=== PATIENT | female | born 1935 | race Caucasian/White ===

== ENCOUNTER 2018-09-29 23:43 | Inpatient (IN) | payer MEDICARE ==
[2018-09-29] MEDS ORDERED: NS 0.9% 1000 ML** 1,000 ML IV.FLUID IV ONE (23:46)
--- NOTE | 2018-09-29 23:54 | ED ---
Altered Mental Status - HPI Summary HPI Summary: This is an 82 [facility]/o shelter resident who reportedly developed depressed LOC along with hypotension and tachypnea over the course of the evening. There is no report of antecedent illness, and the patient is unable to provide any history LEVEL 5 CAVEAT. - History Of Current Complaint Chief Complaint: EDAltMentalStatus Stated Complaint: UNRESPONSIVE PER EMS Time Seen by Provider: 09/29/18 23:48 - Allergies/Home Medications Allergies/Adverse Reactions: Allergies Allergy/AdvReac Type Severity Reaction Status Date / Time No Known Allergies Allergy Verified 09/29/18 23:50 Home Medications: Home Medications Bisacodyl [Dulcolax] 10 mg AK PRN 09/30/18 [History] Insulin GLARGINE(*) [Lantus(*)] 49 units SUBCUT BEDTIME 09/30/18 [History Confirmed 09/30/18] Insulin LISPRO* [HumaLOG*] 4 units SUBCUT BID WITH MEALS 09/30/18 [History Confirmed 09/30/18] Lisinopril TAB* [Prinivil TAB 5 MG*] 5 mg PO DAILY 09/30/18 [History Confirmed 09/30/18] Ranitidine HCl 09/30/18 [History] Zinc Sulfate CAP* [Zinc-220 CAP*] 220 mg PO DAILY 09/30/18 [History Confirmed ] PMH/Surg Hx/FS Hx/Imm Hx Infectious Disease History: No Infectious Disease History: Denies: Traveled Outside the [place] in Last 30 Days Review of Systems - ROS Summary Review of Systems Summary: LEVEL 5 CAVEAT DUE TO ALTERED MENTAL STATUS Negative: Fever All Other Systems Reviewed And Are Negative: No Physical Exam - Summary Physical Exam Summary: General: This is a chronically ill appearing woman lying on the stretcher in obvious distress with marked tachypnea noted. HR is borderline elevated, and the pt is quite hypotensive. Neck: No obvious swellings. Lungs: There are no abnormal lung sounds, but the patient is tachypneic. Coronary: Peripheral perfusion is good. Abdomen: The abdomen appears normal and is nondistended. Genitourinary: Deferred Back: deferred Extremities: Pt is diffusely flaccid, with decreased muscle tone throughout. There is no sign of any trauma to the extremities. Neurologic: The patient is obtunded and unresponsive to noxious stimuli Psychiatric: deferred due to depressed LOC Vital Signs On Initial Exam: Initial Vitals Pulse Resp BP Pulse Ox 97 45 74/42 94 09/29/18 23:45 09/29/18 23:45 09/29/18 23:45 09/29/18 23:45 Diagnostics - Vital Signs Vital Signs Temp Pulse Resp BP Pulse Ox 09/29/18 23:48 153 40 91 09/29/18 23:46 36.5 C 100 44 74/42 90 09/29/18 23:45 97 45 74/42 94 - Laboratory Result Diagrams: 09/30/18 03:30 09/30/18 03:31 Lab Statement: Any lab studies that have been ordered have been reviewed, and results considered in the medical decision making process. Altered Mental Statu Course/Dx - Diagnoses Provider Diagnoses: Hypernatremia, UTI (urinary tract infection), Acute kidney injury - Provider Notifications Discussed Care Of Patient With: Roman Sutton Instructed by Provider To: Admit As Inpatient - Critical Care Time Critical Care Time: 30-74 min Discharge - Sign-Out/Discharge Documenting (check all that apply): Patient Departure Patient Received Moderate/Deep Sedation with Procedure: No - Discharge Plan Condition: Critical Disposition: ADMITTED TO [facility] Referrals: No Primary Care Phys,NOPCP [Primary Care Provider] - - Billing Disposition and Condition Condition: CRITICAL Disposition: Admitted to [facility] - Attestation Statements Document Initiated by Scribe: No
[2018-09-30] MEDS ORDERED: cefTRIAXone(*) 2 GM in NS 0.9% 50 ML* 50 ML IVPB ONE (01:22)
[2018-09-30 01:23] LABS: Activated Partial Thrombo Time 19.6 seconds (26.0-38.0); INR 1.21 (0.82-1.09)
[2018-09-30 01:25] LABS: Hematocrit 40 % (35-47); Hemoglobin 11.6 g/dL (12.0-16.0); Mean Corpuscular HGB Conc 29 g/dL (31-36); Mean Corpuscular Hemoglobin 26 pg (27-31); Mean Corpuscular Volume 89 fL (80-97); Red Blood Count 4.53 10^6 /uL (3.70-4.87); Red Cell Distribution Width 24 % (10-15); White Blood Count 19.5 10^3/uL (3.5-10.8)
[2018-09-30 01:43] LABS: ALT 65 U/L (7-52); AST 63 U/L (13-39); Albumin 3.9 g/dL (3.2-5.2); Albumin/Globulin Ratio 1.1 (1-3); Alkaline Phosphatase 77 U/L (34-104); BUN/Creatinine Ratio 14.8 (8-20); Blood Urea Nitrogen 111 mg/dL (6-24); CO2 Carbon Dioxide 17 mmol/L (22-32); EGFR African American 6.3 (>60); EGFR Non-African American 5.2 (>60); Globulin 3.7 g/dL (2-4); Glucose 72 mg/dL (70-100); Total Protein 7.6 g/dL (6.4-8.9)
[2018-09-30 01:52] LABS: Anion Gap 15 mmol/L (2-11); Chloride 135 mmol/L (101-111); Potassium 5.2 mmol/L (3.5-5.0); Sodium 167 mmol/L (135-145)
[2018-09-30 01:53] LABS: Troponin I 0.18 ng/mL (<0.04)
[2018-09-30 02:14] LABS: Mean Platelet Volume 12.7 fL (7.4-10.4); Platelet Count 59 10^3/uL (150-450)
[2018-09-30 02:18] LABS: ABS Basophils 0.1 10^3/ul (0-0.2); ABS Lymphocytes 2.7 10^3/ul (1.0-4.8); ABS Monocytes 4.5 10^3/ul (0-0.8); ABS Neutrophils 12.2 10^3/ul (1.5-7.7); Lymphocyte % 13.7 %; Nucleated Red Blood Cells % 0.1
[2018-09-30] MEDS ORDERED: NS 0.9% 1000 ML** 2,000 ML IV ONE (02:21)
[2018-09-30] MEDS ORDERED: NS 0.9% 1000 ML** 1,000 ML IV SCH ×3 (03:45→21:15)
[2018-09-30] MEDS ORDERED: Vancomycin(*) 1,000 MG in NS 0.9% 250 ML* 250 ML IVPB ONE (03:51)
[2018-09-30] MEDS ORDERED: Sodium Bicarbonate 8.4% IV* 50 ML VIAL IV ONE ×2 (03:56→19:19)
[2018-09-30 03:58] LABS: BUN/Creatinine Ratio 15.8 (8-20); Blood Urea Nitrogen 112 mg/dL (6-24); CO2 Carbon Dioxide 17 mmol/L (22-32); Calcium 8.9 mg/dL (8.6-10.3); EGFR African American 6.7 (>60); EGFR Non-African American 5.6 (>60); Glucose 86 mg/dL (70-100); Potassium 4.7 mmol/L (3.5-5.0)
[2018-09-30 03:59] LABS: Sodium 163 mmol/L (135-145)
[2018-09-30 04:02] LABS: Hematocrit 36 % (35-47); Hemoglobin 10.9 g/dL (12.0-16.0); Mean Corpuscular HGB Conc 30 g/dL (31-36); Mean Corpuscular Hemoglobin 27 pg (27-31); Mean Corpuscular Volume 87 fL (80-97); Red Blood Count 4.12 10^6 /uL (3.70-4.87); Red Cell Distribution Width 24 % (10-15); White Blood Count 18.3 10^3/uL (3.5-10.8)
[2018-09-30 04:06] LABS: Troponin I 0.23 ng/mL (<0.04)
[2018-09-30 04:20] LABS: Urine Appearance Turbid; Urine Bacteria Absent (Absent); Urine Bilirubin Negative (Negative); Urine Blood 2+ (Negative); Urine Color Amber; Urine Glucose Negative (Negative); Urine Ketones Trace (Negative); Urine Nitrite Negative (Negative); Urine Protein 2+(100 mg/dL) (Negative); Urine Specific Gravity 1.017 (1.010-1.030); Urine Urobilinogen Negative (Negative)
[2018-09-30 04:23] LABS: Anion Gap 14 mmol/L (2-11); Chloride 132 mmol/L (101-111)
[2018-09-30 04:38] LABS: Mean Platelet Volume 12.5 fL (7.4-10.4); Platelet Count 54 10^3/uL (150-450)
[2018-09-30 04:40] LABS: ABS Basophils 0.1 10^3/ul (0-0.2); ABS Lymphocytes 2.8 10^3/ul (1.0-4.8); ABS Monocytes 4.1 10^3/ul (0-0.8); ABS Neutrophils 11.5 10^3/ul (1.5-7.7); Large Platelets Present; Lymphocyte % 15.2 %
[2018-09-30 05:11] LABS: Urine Red Blood Cell 3+(>10/hpf) (Absent); Urine White Blood Cell 3+(>20/hpf) (Absent)
--- NOTE | 2018-09-30 06:08 | HP ---
ADMISSION HISTORY AND PHYSICAL: DATE OF ADMISSION: 09/30/18 CHIEF COMPLAINT: Altered mental status. HISTORY OF PRESENT ILLNESS: This is an 82-year-old female who is a resident of [facility] sent in due to altered mental status and hyponatremia. The patient is alerted, so could not provide any history. So, the rest of the history was obtained by reviewing ER chart and reviewing the paper sent from the [facility]. The patient apparently was noted to have high sodium and was sent via ambulance for further evaluation and treatment. 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 I could not get any social or family history, although that would be noncontributory at this point due to her mental status change and I could not find any documentation of that. HOME MEDICATIONS: The patient is listed to be on. 1. Zinc sulfate oral daily. 2. Lispro 4 units subcutaneous b.i.d. with meals. 3. Glargine 49 units subcutaneous at bedtime. 4. Lisinopril 5 mg oral daily. 5. Ranitidine unspecified dosage. 6. Bisacodyl 10 mg p.o. p.r.n. ALLERGIES: The patient is allergic to CIPROFLOXACIN, CODEINE, PENICILLIN, ROFECOXIB, SULFA, and TETANUS TOXOID. SOCIAL HISTORY: Unable to obtain any social history due to lack of any documentation and patient being confused. However, there is a MOLST form obtained, which shows the patient is do not resuscitate and allow for natural and comfort measures only and do not intubate, but they were okay with sending to hospital if necessary based on MOLST orders. No feeding tube. Trial of IV fluids and use of antibiotics to treat any infections if indicated. PHYSICAL EXAMINATION GENERAL: The patient is arousable to only painful stimuli, but does not follow any commands. VITAL SIGNS: In the ER, BP was noted to be low at around 97/56, T-max was noted to be 99.5, the most recent temperature was noted to be 98.6, heart rate 92, respiration rate 28, saturation 93% on 100% nonrebreather. HEAD AND NECK: Atraumatic, normocephalic. Bilateral pupils are reactive to light. Oral mucosa was dry. Neck: Supple. No jugular venous distention. LUNGS: The patient had transmitted lung sounds due to her moaning, but I could not appreciate any obvious rhonchi anteriorly. HEART: S1, S2. Regular rate and rhythm. ABDOMEN: Soft, nontender, and nondistended. EXTREMITIES: The patient had bilateral lower extremity and heel raising and there is would on the left lower extremity, which is dressed. DIAGNOSTIC STUDIES/LAB DATA: CBC shows elevated white count of 19.5, hemoglobin and hematocrit were stable, platelet count was low at 93. Coagulation profile shows elevated INR of 1.21. Comprehensive metabolic panel shows sodium elevated at 157. Potassium elevated at 5.2. BUN elevated at 111 and creatinine elevated at 7.5. Troponin minimally elevated at 0.18. When compared to her old labs from about a week ago, creatinine went from 1.26 to 7.5 and sodium went from 152 to 167. IMPRESSION: This is an 82-year-old female with diabetes, hypertension here with altered mental status and hypernatremia. At this point, there is nobody else to give any collateral information, but there is a document of MOLST, which was signed recently under a month ago. So, for now, the patient was noted to be having altered mental status, acute kidney injury, which is worsened from her previous lab from about a week ago. Hyponatremia also worsened from about a week ago and likely all secondary to urinary tract infection, possible severe dehydration. ASSESSMENT: 1. Altered mental status likely multifactorial due to sepsis from urinary tract infection. We will start the patient on broad-spectrum antibiotics with vancomycin and Zosyn in light of the fact that the patient is from halfway. Adjust vancomycin and aztreonam given her penicillin allergy and dosed renally and follow up urine and blood cultures and titrate based on culture results. 2. Severe hypernatremia. We will get serial BMPs and start the patient on IV hydration. This is likely more of severe vascular depletion rather than pure decreased free water. So, we will give normal saline and then consider starting a more lower concentration fluid such as half normal or D5 based on repeat sodium levels. 3. Acute kidney injury likely secondary to severe dehydration possibly from not eating. We will follow up creatinine on IV fluids. 4. History of hypertension. We will hold blood pressure medications given her blood pressure being in the low normal. 5. History of diabetes. We will start the patient on fingerstick monitoring. 6. Elevated creatinine is likely more secondary to septic cardiomyopathy and decreased renal clearance rather than an acute coronary event. We will monitor for now. 7. Deep vein thrombosis prophylaxis with no chemical prophylaxis in light of the patient's elevated INR and the patient does have lower extremity wound, so sequential compression device would be contraindicated. We will reassess once the patient is more awake and if the creatinine improves and if the INR improves. The patient's prognosis is very poor and guarded, but we will follow the MOLST recommendation and try to hydrate and resuscitate the patient to the limit of the MOLST. [id number]/CPS #: [id number] MTDD
[2018-09-30] MEDS ORDERED: Aztreonam (*) 1 GM in NS 0.9% 50 ML* 50 ML IVPB ONE (06:45)
[2018-09-30 08:53] LABS: BUN/Creatinine Ratio 16.6 (8-20); Calcium 9.3 mg/dL (8.6-10.3); EGFR African American 7.2 (>60); Potassium 4.6 mmol/L (3.5-5.0)
[2018-09-30] MEDS: D5W 1/2 NS 1000 ML BAG* 1,000 ML IV SCH ×2 (10:23→19:08)
[2018-09-30] MEDS: Morphine INJ* 2 MG/ML 1 ML SYRINGE (TWO MG - NEW SYRINGE VERSION) IV PRN ×3 (14:58→23:02)
[2018-09-30] MEDS ORDERED: Aztreonam (*) 0.5 GM in NS 0.9% 50 ML* 50 ML IVPB SCH (15:30)
--- NOTE | 2018-09-30 18:39 | PN ---
Progress Note - Progress Note Date of Service: 09/30/18 Note: This service has been performed in part by a resident under the direction of a teaching physician.I, Alessandro Ellington, performed the service, or was physically present during the critical, or cox portions of the service, furnished by the resident. I participated in the management of the patient. Agree with assessment and plan as outlined in Dr. Hobson's note from today unless otherwise indicated here. 82 F admitted with severe sepsis complicated by multisystem organ failure. Long discussion with family regarding goals of care. The following was agreed upon. Will continue treatment with abx for suspected underlying infection Will continue fluids for hypotension and hypernatremia knowing that the fluids may worsen her breathing. If breathing worsens we will not pursue more aggressive interventions such BiPAP or CPAP and family is in agreement for morphine for discomfort including air hunger which is currently ordered but has not been needed. Will continue BMPs and adjust fluids as necessary. No other interventions other than comfort should abx, fluids, blood draws be unsuccessful. Prognosis guarded and was discussed with family.
[2018-09-30 19:11] LABS: BUN/Creatinine Ratio 17.2 (8-20); Calcium 6.7 mg/dL (8.6-10.3); EGFR African American 8.4 (>60); Potassium 4.1 mmol/L (3.5-5.0)
--- NOTE | 2018-09-30 19:14 | PN ---
Subjective Date of Service: 09/30/18 Interval History: 82 y/o F, [facility] resident presented with altered sensorium and hypernatremia. Found to have severe hypernatremia, UTI with sepsis, Acute kidney injury with high anion gap metabolic acidosis, lactic acidosis and elevated troponin. GCS score is 9. Patient is DNR/DNI. DIscussed with family about goals of tx. Agreed upon only comfort care. Objective Active Medications: Dextrose/Sodium Chloride (D5w 1/2 Ns 1000 Ml Bag*) 1,000 mls @ 125 mls/hr IV PER RATE ROBERTA Stop: 10/01/18 18:59 Last Admin: 09/30/18 10:23 Dose: 125 mls/hr Ceftriaxone Sodium 1 gm/ (Sodium Chloride) 50 mls @ 100 mls/hr IVPB Q24H ROBERTA Morphine Sulfate (Morphine Inj (Syringe))*) 0.5 mg IV Q2H PRN PRN Reason: shortness of breath Last Admin: 09/30/18 17:20 Dose: 0.5 mg Vital Signs - 8 hr 09/30/18 09/30/18 09/30/18 11:32 11:40 14:58 Temperature 97.6 F Pulse Rate 92 Respiratory 32 40 36 Rate Blood Pressure 86/43 98/46 (mmHg) O2 Sat by Pulse 94 Oximetry 09/30/18 09/30/18 09/30/18 15:15 16:00 17:20 Temperature 97.6 F Pulse Rate 93 Respiratory 38 38 32 Rate Blood Pressure 91/43 (mmHg) O2 Sat by Pulse 94 Oximetry Oxygen Devices in Use Now: Simple Face Mask Exam: Patient is critically ill with laboured breathing and on O2 max GCS: 9 HEENT: Normal Lungs: Moaning sound heard which made difficulty in assessing the lungs abnormality Heart: Systolic murmur heard on left sternal border. Abdomen: SOft, nondistended,. Normal bowel sound heard Extremities: Dressing wound on lower extremity Neuro: Semi-conscious; responds to pain. Result Diagrams: 10/01/18 04:57 10/01/18 04:57 Assess/Plan/Problems-Billing Assessment: 82 y/o F, [facility] resident presented with altered sensorium and hypernatremia. Found to have severe hypernatremia, UTI with sepsis, Acute kidney injury with high anion gap metabolic acidosis, lactic acidosis and elevated troponin. PT is DNR; ONLY COMFORT CARE. Discussed with family. No BiPAP or CPap; may give morphine low dose for diffculty in breathing. No aggressive treatment; may continue iv fluid and antibiotic. Family member informed about the critical condition of patient. - Patient Problems (1) Sepsis Current Visit: Yes Status: Acute Comment: Due to infection. ceftriaxone and iv fluids stopped. No agressive treatment according to the wish of patient and family members. (2) UTI (urinary tract infection) Current Visit: Yes Status: Acute Comment: Stopped abx and fluids. (3) Chronic hypernatremia Current Visit: Yes Status: Acute Code(s): E87.0 - HYPEROSMOLALITY AND HYPERNATREMIA SNOMED Code(s): 70041682 (4) Acute kidney injury Current Visit: Yes Status: Acute Code(s): N17.9 - ACUTE KIDNEY FAILURE, UNSPECIFIED SNOMED Code(s): 34070590 Comment: In the setting of sepsis, dehydration. (5) Metabolic acidosis Current Visit: Yes Status: Acute Code(s): E87.2 - ACIDOSIS SNOMED Code(s) : 98725976 Comment: due to kidney injury. Status and Disposition: Inpatient Attending: Alessandro Ellington Attestation Documenting Resident: Melissa Hobson Supervising Physician: Alessandro Ellington Attending/Supervising Physician Comment: Please see the additional note from today by this author for additional details and corrections to this documentation Attestation: This service has been performed in part by a resident under the direction of a teaching physician.I, Alessandro Ellington, performed the service, or was physically present during the critical, or cox portions of the service, furnished by the resident. I participated in the management of the patient.
[2018-09-30] MEDS ORDERED: Insulin LISPRO* 1 UNITS UNIT SUBCUT ONE (21:00)
[2018-09-30] MEDS ORDERED: cefTRIAXone(*) 1 GM in NS 0.9% 50 ML* 50 ML IVPB SCH (21:00)
[2018-09-30 21:09] LABS: BUN/Creatinine Ratio 16.6 (8-20); Calcium 8.2 mg/dL (8.6-10.3); EGFR African American 6.8 (>60); EGFR Non-African American 5.6 (>60); Potassium 4.8 mmol/L (3.5-5.0)
[2018-09-30] MEDS: Sodium Bicarbonate 8.4% IV* 50 ML VIAL IV SCH ×2 (22:06→23:12)
[2018-10-01] MEDS: Sodium Bicarbonate 8.4% IV* 50 ML VIAL IV SCH (00:10)
[2018-10-01 01:26] LABS: BUN/Creatinine Ratio 16.9 (8-20); EGFR African American 6.9 (>60); EGFR Non-African American 5.7 (>60); Potassium 4.7 mmol/L (3.5-5.0)
[2018-10-01] MEDS ORDERED: NS 0.45% 1000 ML BAG* 1,000 ML IV SCH (02:00)
[2018-10-01] MEDS: Morphine INJ* 2 MG/ML 1 ML SYRINGE (TWO MG - NEW SYRINGE VERSION) IV PRN ×4 (02:27→15:31)
[2018-10-01 05:19] LABS: Hematocrit 30 % (35-47); Hemoglobin 9.2 g/dL (12.0-16.0); Mean Corpuscular HGB Conc 30 g/dL (31-36); Mean Corpuscular Hemoglobin 26 pg (27-31); Mean Corpuscular Volume 86 fL (80-97); Red Blood Count 3.51 10^6 /uL (3.70-4.87); Red Cell Distribution Width 23 % (10-15); White Blood Count 20.8 10^3/uL (3.5-10.8)
[2018-10-01 05:24] LABS: Albumin 3.1 g/dL (3.2-5.2); BUN/Creatinine Ratio 17.5 (8-20); Calcium 7.9 mg/dL (8.6-10.3); EGFR African American 7.2 (>60); EGFR Non-African American 5.9 (>60); Indirect Bilirubin 0.2 mg/dL (0.3-1.0); Magnesium 2.2 mg/dL (1.9-2.7); Phosphorus 3.8 mg/dL (2.5-5.0); Potassium 4.3 mmol/L (3.5-5.0); Total Bilirubin 0.4 mg/dL (0.2-1.0); Total Protein 6.1 g/dL (6.4-8.9)
[2018-10-01] MEDS ORDERED: Adenosine* 3 MG/ML VIAL ONE ×3 (06:08→06:26)
[2018-10-01] MEDS ORDERED: Adenosine* 3 MG/ML VIAL IV PUSH ONE ×3 (06:14→06:26)
[2018-10-01] MEDS ORDERED: Digoxin IV* 0.5 MG/2 ML AMP (0.25 MG/ML) IV SLOW PU ONE (06:31)
[2018-10-01] MEDS ORDERED: Digoxin IV* 0.5 MG/2 ML AMP (0.25 MG/ML) ONE (06:33)
[2018-10-01] MEDS ORDERED: NS 0.45% 1000 ML BAG* 1,000 ML IV ONE (07:00)
[2018-10-01 07:33] LABS: Platelet Count 53 10^3/uL (150-450)
[2018-10-01 07:34] LABS: ABS Basophils 0.2 10^3/ul (0-0.2); ABS Lymphocytes 2.2 10^3/ul (1.0-4.8); ABS Monocytes 2.7 10^3/ul (0-0.8); ABS Neutrophils 15.7 10^3/ul (1.5-7.7); Lymphocyte % 10.8 %
[2018-10-01 07:39] LABS: Polychromasia 1+
[2018-10-01 08:38] VITALS: BP 88/58
--- NOTE | 2018-10-01 14:04 | CONSULT ---
Palliative / Hospice Consult Ordering Provider: Alessandro Ellington - Subjective Code Status: DNR Advance Directives Location: In Chart MOLST Part A Completed: Yes - on chart MOLST Part E Completed:: Yes - on chart - History or Present Illness History or Present Illness: 82yo female resident of [facility] presents with AMS and electrolyte abnormality. PMH is significant for iron deficiency anemia, DM type 2, HTN, FL, GERD, vascular dementia and malignant neoplasm of bladder. Pt has been nonambulatory and nonverbal for 3yrs, Zoey Joshi her daughter is her HCP. Studies CXR-neg, ekg- afib with RVR, H/H 9.2/30, plt 53, Na 166, BUN/Cr 14/6.73, egfr 5.9, Ca 7.9, INR 1.21, tprot 6.1, alb 3.1 and Urine cult P.mirablis. Pt admitted with sepsis , hyponatremia, afib with RVR and ALEXANDRA. All history is from the family and medical records. Pt is unresponsive. Lab Values: Abnormal Lab Results 09/30/18 09/30/18 09/30/18 01:07 03:30 15:45 WBC RBC Hgb Hct MCV MCH MCHC RDW Plt Count MPV Neut % (Auto) Lymph % (Auto) [place] % (Auto) Eos % (Auto) Baso % (Auto) Absolute Neuts (auto) Absolute Lymphs (auto) Absolute Monos (auto) Absolute Eos (auto) Absolute Basos (auto) Absolute Nucleated RBC Immature Gran % Neutrophils % Band Neutrophils % Lymphocytes % Monocytes % Eosinophils % Basophils % Nucleated RBC % Giant Platelets Normal RBC Morphology Polychromasia Hem Pathologist Commnt Sodium Potassium Chloride Carbon Dioxide Anion Gap BUN Creatinine Est GFR ( Amer) Est GFR (Non-Af Amer) BUN/Creatinine Ratio Glucose POC Glucose (mg/dL) 306 H Calcium Phosphorus Magnesium Total Bilirubin Direct Bilirubin Indirect Bilirubin AST ALT Alkaline Phosphatase Total Protein Albumin Globulin Albumin/Globulin Ratio 09/30/18 09/30/18 09/30/18 18:42 19:07 20:35 WBC RBC Hgb Hct MCV MCH MCHC RDW Plt Count MPV Neut % (Auto) Lymph % (Auto) [place] % (Auto) Eos % (Auto) Baso % (Auto) Absolute Neuts (auto) Absolute Lymphs (auto) Absolute Monos (auto) Absolute Eos (auto) Absolute Basos (auto) Absolute Nucleated RBC Immature Gran % Neutrophils % Band Neutrophils % Lymphocytes % Monocytes % Eosinophils % Basophils % Nucleated RBC % Giant Platelets Normal RBC Morphology Polychromasia Hem Pathologist Commnt Sodium 151 H D 163 H* D Potassium 4.1 4.8 Chloride 125 H 133 H Carbon Dioxide 14 L* 16 L Anion Gap 12 H 14 H BUN 100 H 117 H Creatinine 5.83 H 7.04 H Est GFR ( Amer) 8.4 6.8 Est GFR (Non-Af Amer) 7.0 5.6 BUN/Creatinine Ratio 17.2 16.6 Glucose 941 H* 322 H POC Glucose (mg/dL) 244 H Calcium 6.7 L 8.2 L Phosphorus Magnesium Total Bilirubin Direct Bilirubin Indirect Bilirubin AST ALT Alkaline Phosphatase Total Protein Albumin Globulin Albumin/Globulin Ratio 09/30/18 10/01/18 10/01/18 23:23 01:01 04:57 WBC 20.8 H RBC 3.51 L Hgb 9.2 L Hct 30 L MCV 86 MCH 26 L MCHC 30 L RDW 23 H Plt Count 53 L MPV Not Reportable Neut % (Auto) 75.5 Lymph % (Auto) 10.8 [place] % (Auto) 12.9 Eos % (Auto) 0.0 Baso % (Auto) 0.8 Absolute Neuts (auto) 15.7 H Absolute Lymphs (auto) 2.2 Absolute Monos (auto) 2.7 H Absolute Eos (auto) 0.0 Absolute Basos (auto) 0.2 Absolute Nucleated RBC 0.0 Immature Gran % 11.0 H Neutrophils % 73.0 Band Neutrophils % 11.0 H Lymphocytes % 8.0 Monocytes % 8.0 Eosinophils % 0.0 Basophils % 0.0 Nucleated RBC % 0.0 Giant Platelets Present Normal RBC Morphology Not Reportable Polychromasia 1+ Hem Pathologist Commnt Sodium 170 H* Potassium 4.7 Chloride 132 H Carbon Dioxide 24 Anion Gap 14 H BUN 118 H Creatinine 6.98 H Est GFR ( Amer) 6.9 Est GFR (Non-Af Amer) 5.7 BUN/Creatinine Ratio 16.9 Glucose 266 H POC Glucose (mg/dL) 349 H Calcium 8.0 L Phosphorus Magnesium Total Bilirubin Direct Bilirubin Indirect Bilirubin AST ALT Alkaline Phosphatase Total Protein Albumin Globulin Albumin/Globulin Ratio 10/01/18 10/01/18 04:57 07:17 WBC RBC Hgb Hct MCV MCH MCHC RDW Plt Count MPV Neut % (Auto) Lymph % (Auto) [place] % (Auto) Eos % (Auto) Baso % (Auto) Absolute Neuts (auto) Absolute Lymphs (auto) Absolute Monos (auto) Absolute Eos (auto) Absolute Basos (auto) Absolute Nucleated RBC Immature Gran % Neutrophils % Band Neutrophils % Lymphocytes % Monocytes % Eosinophils % Basophils % Nucleated RBC % Giant Platelets Normal RBC Morphology Polychromasia Hem Pathologist Commnt Sodium 166 H* Potassium 4.3 Chloride 132 H Carbon Dioxide 20 L Anion Gap 14 H BUN 118 H Creatinine 6.73 H Est GFR ( Amer) 7.2 Est GFR (Non-Af Amer) 5.9 BUN/Creatinine Ratio 17.5 Glucose 221 H POC Glucose (mg/dL) 200 H Calcium 7.9 L Phosphorus 3.8 Magnesium 2.2 Total Bilirubin 0.40 Direct Bilirubin 0.20 H Indirect Bilirubin 0.2 L AST 66 H ALT 49 Alkaline Phosphatase 73 Total Protein 6.1 L Albumin 3.1 L Globulin 3.0 Albumin/Globulin Ratio 1.0 Laboratory Last Values WBC 20.8 10^3/uL (3.5-10.8) H 10/01/18 04:57 RBC 3.51 10^6 /uL (3.70-4.87) L 10/01/18 04:57 Hgb 9.2 g/dL (12.0-16.0) L 10/01/18 04:57 Hct 30 % (35-47) L 10/01/18 04:57 MCV 86 fL (80-97) 10/01/18 04:57 MCH 26 pg (27-31) L 10/01/18 04:57 MCHC 30 g/dL (31-36) L 10/01/18 04:57 RDW 23 % (10-15) H 10/01/18 04:57 Plt Count 53 10^3/uL (150-450) L 10/01/18 04:57 MPV Not Reportable 10/01/18 04:57 Neut % (Auto) 75.5 % 10/01/18 04:57 Lymph % (Auto) 10.8 % 10/01/18 04:57 [place] % (Auto) 12.9 % 10/01/18 04:57 Eos % (Auto) 0.0 % 10/01/18 04:57 Baso % (Auto) 0.8 % 10/01/18 04:57 Absolute Neuts (auto) 15.7 10^3/ul (1.5-7.7) H 10/01/18 04:57 Absolute Lymphs (auto) 2.2 10^3/ul (1.0-4.8) 10/01/18 04:57 Absolute Monos (auto) 2.7 10^3/ul (0-0.8) H 10/01/18 04:57 Absolute Eos (auto) 0.0 10^3/ul (0-0.6) 10/01/18 04:57 Absolute Basos (auto) 0.2 10^3/ul (0-0.2) 10/01/18 04:57 Absolute Nucleated RBC 0.0 10^3/ul 10/01/18 04:57 Immature Gran % 11.0 % (0-9) H 10/01/18 04:57 Neutrophils % 73.0 % 10/01/18 04:57 Band Neutrophils % 11.0 % (0-8) H 10/01/18 04:57 Lymphocytes % 8.0 % 10/01/18 04:57 Monocytes % 8.0 % 10/01/18 04:57 Eosinophils % 0.0 % 10/01/18 04:57 Basophils % 0.0 % 10/01/18 04:57 Nucleated RBC % 0.0 10/01/18 04:57 Large Platelets Present 09/30/18 03:30 Giant Platelets Present 10/01/18 04:57 Normal RBC Morphology Not Reportable 10/01/18 04:57 Polychromasia 1+ 10/01/18 04:57 Hem Pathologist Commnt 10/01/18 04:57 INR (Anticoag Therapy) 1.21 (0.82-1.09) H 09/30/18 01:07 APTT 19.6 seconds (26.0-38.0) L 09/30/18 01:07 VBG pH 7.26 (7.32-7.43) L 09/30/18 03:31 VBG pCO2 41 mmHg (41-51) 09/30/18 03:31 VBG pO2 < 38.0 mmHg (35-45) 09/30/18 03:31 VBG HCO3 17.0 mmol/L (24-28) L 09/30/18 03:31 VBG O2 Saturation 46.5 % (70-80) L 09/30/18 03:31 VBG Base Excess -8.3 mmol/L (0.0-4.0) L 09/30/18 03:31 Sodium 166 mmol/L (135-145) H* 10/01/18 04:57 Potassium 4.3 mmol/L (3.5-5.0) 10/01/18 04:57 Chloride 132 mmol/L (101-111) H 10/01/18 04:57 Carbon Dioxide 20 mmol/L (22-32) L 10/01/18 04:57 Anion Gap 14 mmol/L (2-11) H 10/01/18 04:57 BUN 118 mg/dL (6-24) H 10/01/18 04:57 Creatinine 6.73 mg/dL (0.51-0.95) H 10/01/18 04:57 Est GFR ( Amer) 7.2 (>60) 10/01/18 04:57 Est GFR (Non-Af Amer) 5.9 (>60) 10/01/18 04:57 BUN/Creatinine Ratio 17.5 (8-20) 10/01/18 04:57 Glucose 221 mg/dL (70-100) H 10/01/18 04:57 POC Glucose (mg/dL) 200 mg/dL (70-100) H 10/01/18 07:17 Lactic Acid 2.2 mmol/L (0.5-2.0) H* 09/30/18 03:31 Calcium 7.9 mg/dL (8.6-10.3) L 10/01/18 04:57 Phosphorus 3.8 mg/dL (2.5-5.0) 10/01/18 04:57 Magnesium 2.2 mg/dL (1.9-2.7) 10/01/18 04:57 Total Bilirubin 0.40 mg/dL (0.2-1.0) 10/01/18 04:57 Direct Bilirubin 0.20 mg/dL (0.03-0.18) H 10/01/18 04:57 Indirect Bilirubin 0.2 mg/dL (0.3-1.0) L 10/01/18 04:57 AST 66 U/L (13-39) H 10/01/18 04:57 ALT 49 U/L (7-52) 10/01/18 04:57 Alkaline Phosphatase 73 U/L (34-104) 10/01/18 04:57 Troponin I 0.23 ng/mL (<0.04) H* 09/30/18 03:31 B-Natriuretic Peptide 63 pg/mL (<=100) 09/30/18 03:30 Total Protein 6.1 g/dL (6.4-8.9) L 10/01/18 04:57 Albumin 3.1 g/dL (3.2-5.2) L 10/01/18 04:57 Globulin 3.0 g/dL (2-4) 10/01/18 04:57 Albumin/Globulin Ratio 1.0 (1-3) 10/01/18 04:57 Urine Color Cathryn 09/30/18 02:40 Urine Appearance Turbid 09/30/18 02:40 Urine pH 8.0 (5-9) 09/30/18 02:40 Ur Specific [place] 1.017 (1.010-1.030) 09/30/18 02:40 Urine Protein 2+(100 mg/dl) (Negative) A 09/30/18 02:40 Urine Ketones Trace (Negative) A 09/30/18 02:40 Urine Blood 2+ (Negative) A 09/30/18 02:40 Urine Nitrate Negative (Negative) 09/30/18 02:40 Urine Bilirubin Negative (Negative) 09/30/18 02:40 Urine Urobilinogen Negative (Negative) 09/30/18 02:40 Ur Leukocyte Esterase 2+ (Negative) A 09/30/18 02:40 Urine WBC (Auto) 3+(>20/hpf) (Absent) A 09/30/18 02:40 Urine RBC (Auto) 3+(>10/hpf) (Absent) A 09/30/18 02:40 Triple Phos Crystals Present (Absent) A 09/30/18 02:40 Urine Bacteria Absent (Absent) 09/30/18 02:40 Urine Glucose Negative (Negative) 09/30/18 02:40 - Objective Active Medications: Morphine Sulfate (Morphine Inj (Syringe))*) 0.5 mg IV Q2H PRN PRN Reason: shortness of breath Last Admin: 10/01/18 11:39 Dose: 0.5 mg Vital Signs: Vital Signs: Temp Pulse Resp BP Pulse Ox 98.5 F 144 36 88/58 88 10/01/18 03:15 10/01/18 06:56 10/01/18 13:10 10/01/18 07:32 10/01/18 06:47 Patient Weight: Weight 91.626 kg Intake and Output: Intake & Output 09/29/18 09/30/18 10/01/18 10/02/18 06:59 06:59 06:59 06:59 Intake Total 4400 1140 0 Output Total 180 100 Balance 4220 1040 0 Weight 91.626 kg 91.626 kg Intake: IV Fluids 4400 150 abx 150 IVPB 990 NS (0.9%) 990 Oral 0 0 Output: Urine 100 Duffy 80 100 ADLs: Meal Record Start: 09/30/18 06: 26 Freq: DAILY@0900,1400,1800 Status: Active Protocol: Created 09/30/18 06:26 System (Rec: 09/30/18 06:26 System [id number]) Document 09/30/18 09:00 [id number] (Rec: 09/30/18 14:46 [id number] TELE-M15) Document 09/30/18 14:00 [id number] (Rec: 09/30/18 14:47 [id number] TELE-M15) Document 09/30/18 18:00 [id number] (Rec: 09/30/18 18:41 [id number] TELE-C13) Document 10/01/18 09:00 [id number] (Rec: 10/01/18 09:48 [id number] TELE-C11) Intake and Output Start: 09/29/18 23: 49 Freq: Status: Active Protocol: Created 09/29/18 23:49 System (Rec: 09/29/18 23:49 System [id number]) Document 09/30/18 03:45 [id number] (Rec: 09/30/18 03:45 [id number] ED-C18) Document 09/30/18 05:53 [id number] (Rec: 09/30/18 05:54 [id number] ED-C18) Intake and Output Start: 09/30/18 06: 26 Freq: DAILY@0600,1400,2200 Status: Active Protocol: Created 09/30/18 06:26 System (Rec: 09/30/18 06:26 System [email or web address]) Document 09/30/18 14:00 [id number] (Rec: 09/30/18 14:52 [id number] TELE-M15) Document 09/30/18 22:00 [id number] (Rec: 09/30/18 22:39 [id number] TELE-C13) Document 10/01/18 06:00 [id number] (Rec: 10/01/18 06:57 [id number] TELE-C07) Head: Normal Eyes: No Scleral Icterus Ears/Nose/Mouth/Throat: NL Teeth, Lips, Gums Neck: NL Appearance and Movements; NL JVP Cardiovascular: - - irregular beat and tachycardia Respiratory: - - upper airway noise - Assessment Assessment: 82yo female with sepsis, hypernatremia, afib and ALEXANDRA actively dying - Plan Consult Plan (MU): Other - actively dying Plan: Family decided to pursue comfort care and aware that pt is dying. Met with family support given. Pt appears comfortable. Offered disability program navigator visit but it was declined. Family has made decisions about arrangements. Discussed pt's medical issues and instructed to contact nurse if any signs of distress. Hospice doesn't come to the hospital but if pt is transported to SNF hospice referral can be sent from SNF. KPS 10%, PPS 10% - Time On Unit Date of Evaluation: 10/01/18 Hospice Consult Time in: 13:30 Hospice Consult Time Out: 14:30 Hospice Consult Time Total: 60 > 50% of Time Spend In Counseling or Coordinating Care: Yes
--- NOTE | 2018-10-01 18:06 | PN ---
Subjective Date of Service: 10/01/18 Interval History: Patient is unresponsive. Patient was on SVT at night.Dr. Sutton gave adenosine and digoxin(for AF). Patient was on SVT today morning with heart rate on 150s. Family contacted. Didnot want any Aggressive measures. All medication stopped except morphine as per family wish. Objective Active Medications: Morphine Sulfate (Morphine Inj (Syringe))*) 0.5 mg IV Q2H PRN PRN Reason: shortness of breath Last Admin: 10/01/18 15:31 Dose: 0.5 mg Vital Signs - 8 hr 10/01/18 10/01/18 10/01/18 11:39 13:10 15:31 Respiratory 36 36 36 Rate 10/01/18 16:53 Respiratory 30 Rate Oxygen Devices in Use Now: Simple Face Mask, High Flow Nasal Cannula Exam: Patient is critically ill with laboured breathing and on O2 max. Un responsive GCS: 9 HEENT: Normal Lungs: Moaning sound heard which made difficulty in assessing the lungs abnormality Heart: Systolic murmur heard on left sternal border. Abdomen: SOft, nondistended,. Normal bowel sound heard Extremities: Dressing wound on lower extremity Neuro: Unconscious; responds to pain Result Diagrams: 10/01/18 04:57 10/01/18 04:57 Assess/Plan/Problems-Billing Assessment: 82 y/o F, intermediate resident presented with altered sensorium and hypernatremia. Found to have severe hypernatremia, UTI with sepsis, Acute kidney injury with high anion gap metabolic acidosis, lactic acidosis and elevated troponin and SVT. PT is DNR; ONLY COMFORT CARE. Discussed with family. No BiPAP or CPap; may give morphine low dose for diffculty in breathing. No aggressive treatment; stopped iv fluid and antibiotic. Family member informed about the critical condition of patient. - Patient Problems (1) Sepsis Current Visit: Yes Status: Acute Comment: Due to infection. ceftriaxone and iv fluids stopped. No agressive treatment according to the wish of patient and family members. (2) UTI (urinary tract infection) Current Visit: Yes Status: Acute Comment: Stopped abx and fluids. (3) Chronic hypernatremia Current Visit: Yes Status: Acute Code(s): E87.0 - HYPEROSMOLALITY AND HYPERNATREMIA SNOMED Code(s): 26169733 (4) Acute kidney injury Current Visit: Yes Status: Acute Code(s): N17.9 - ACUTE KIDNEY FAILURE, UNSPECIFIED SNOMED Code(s): 42421345 Comment: In the setting of sepsis, dehydration. (5) Metabolic acidosis Current Visit: Yes Status: Acute Code(s): E87.2 - ACIDOSIS SNOMED Code(s) : 55656872 Comment: due to kidney injury. Status and Disposition: Inpatient. DNR. Only comfort care Attending: Alessandro Ellington Attestation Documenting Resident: Melissa Hobson Supervising Physician: Alessandro Ellington Attending/Supervising Physician Comment: Agree with note as outlined here Septic shock likely from UTI complicated by multisystem organ failure now receiving morphine for comfort and no other aggressive measures. Prognosis poor. Disposition pending survival for at least 24 hrs Attestation: This service has been performed in part by a resident under the direction of a teaching physician.I, Alessandro Ellington, performed the service, or was physically present during the critical, or cox portions of the service, furnished by the resident. I participated in the management of the patient.
[2018-10-02] MEDS: Morphine INJ* 2 MG/ML 1 ML SYRINGE (TWO MG - NEW SYRINGE VERSION) IV PRN ×6 (03:04→16:34)
--- NOTE | 2018-10-02 16:49 | PN ---
Subjective Date of Service: 10/02/18 Interval History: Patient is unresponsive. On on 8 L of O2 via nasal cannula and max O2 with O2 max. Comfort care. Objective Active Medications: Morphine Sulfate (Morphine Inj (Syringe))*) 1 mg IV Q2H PRN PRN Reason: shortness of breath Last Admin: 10/02/18 16:34 Dose: 1 mg Vital Signs - 8 hr 10/02/18 10/02/18 10/02/18 09:28 10:37 11:47 Respiratory 40 48 44 Rate 10/02/18 10/02/18 10/02/18 13:04 13:08 14:36 Respiratory 44 44 40 Rate 10/02/18 10/02/18 15:48 16:34 Respiratory 40 36 Rate Oxygen Devices in Use Now: Nasal Cannula, OxyMask Exam: Patient is critically ill with laboured breathing and on O2 max. Unresponsive GCS: 9 HEENT: Normal Lungs: Moaning sound heard which made difficulty in assessing the lungs abnormality Heart: Systolic murmur heard on left sternal border. Abdomen: SOft, nondistended,. Normal bowel sound heard Extremities: Dressing wound on lower extremity Neuro: Unconscious; responds to pain Result Diagrams: 10/01/18 04:57 10/01/18 04:57 Assess/Plan/Problems-Billing Assessment: 82 y/o F, senior care resident presented with altered sensorium and hypernatremia. Found to have severe hypernatremia, UTI with sepsis, Acute kidney injury with high anion gap metabolic acidosis, lactic acidosis and elevated troponin and SVT. PT is DNR; ONLY COMFORT CARE. Discussed with family. No BiPAP or CPap; may give morphine low dose for diffculty in breathing. No aggressive treatment; stopped iv fluid and antibiotic. Family member informed about the critical condition of patient. - Patient Problems (1) Sepsis Current Visit: Yes Status: Acute Comment: Due to infection. ceftriaxone and iv fluids stopped. No agressive treatment according to the wish of patient and family members. (2) UTI (urinary tract infection) Current Visit: Yes Status: Acute Comment: Stopped abx and fluids. (3) Chronic hypernatremia Current Visit: Yes Status: Acute Code(s): E87.0 - HYPEROSMOLALITY AND HYPERNATREMIA SNOMED Code(s): 52481016 (4) Acute kidney injury Current Visit: Yes Status: Acute Code(s): N17.9 - ACUTE KIDNEY FAILURE, UNSPECIFIED SNOMED Code(s): 33637233 Comment: In the setting of sepsis, dehydration. (5) Metabolic acidosis Current Visit: Yes Status: Acute Code(s): E87.2 - ACIDOSIS SNOMED Code(s) : 10462344 Comment: due to kidney injury. (6) Respiratory failure Current Visit: Yes Status: Acute Code(s): J96.90 - RESPIRATORY FAILURE, UNSP , UNSP W HYPOXIA OR HYPERCAPNIA SNOMED Code(s): 826622304 Comment: On max O2. On low dose morphine to decrease respiratory drive. Status and Disposition: Inpatient. DNR. Only comfort care Attending: Alessandro Ellington Attestation Documenting Resident: Melissa Hobson Supervising Physician: Alessandro Ellington Attending/Supervising Physician Comment: Agree with assessment and plan as outlined in Dr. Hobson's note. Comfort care in dying process. Requiring increased doses of morphine throughout the day. Prognosis poor and suspected life expectancy <48 hrs Discussed the above with family Attestation: This service has been performed in part by a resident under the direction of a teaching physician.I, Alessandro Ellington, performed the service, or was physically present during the critical, or cox portions of the service, furnished by the resident. I participated in the management of the patient.
[2018-10-03] MEDS: Morphine INJ* 2 MG/ML 1 ML SYRINGE (TWO MG - NEW SYRINGE VERSION) IV PRN ×4 (04:07→20:08)
--- NOTE | 2018-10-03 16:08 | PN ---
Subjective Date of Service: 10/03/18 Interval History: Unresponsive Comfort care patient. Requiring increasing and higher of morphine. ON o2 MAX Objective Active Medications: Morphine Sulfate (Morphine Inj (Syringe))*) 1 mg IV Q1H PRN PRN Reason: shortness of breath Last Admin: 10/03/18 11:41 Dose: 1 mg Vital Signs - 8 hr 10/03/18 10/03/18 10/03/18 09:48 11:30 11:41 Respiratory 36 34 34 Rate Oxygen Devices in Use Now: Nasal Cannula, OxyMask Exam: Patient is critically ill with laboured breathing and on O2 max. Unresponsive HEENT: Normal Lungs: Moaning sound heard which made difficulty in assessing the lungs abnormality Heart: Systolic murmur heard on left sternal border. Abdomen: SOft, nondistended,. Normal bowel sound heard Extremities: Dressing wound on lower extremity Neuro: Unconscious; responds to pain Result Diagrams: 10/01/18 04:57 10/01/18 04:57 Assess/Plan/Problems-Billing Assessment: 82 y/o F, prison resident presented with altered sensorium and hypernatremia. Found to have severe hypernatremia, UTI with sepsis, Acute kidney injury with high anion gap metabolic acidosis, lactic acidosis and elevated troponin and SVT. PT is DNR; ONLY COMFORT CARE. Discussed with family. No BiPAP or CPap; may give morphine low dose for diffculty in breathing. No aggressive treatment; stopped iv fluid and antibiotic. Family member informed about the critical condition of patient. - Patient Problems (1) Sepsis Current Visit: Yes Status: Acute Comment: Due to infection. ceftriaxone and iv fluids stopped. No agressive treatment according to the wish of patient and family members. (2) UTI (urinary tract infection) Current Visit: Yes Status: Acute Comment: Stopped abx and fluids. (3) Chronic hypernatremia Current Visit: Yes Status: Acute Code(s): E87.0 - HYPEROSMOLALITY AND HYPERNATREMIA SNOMED Code(s): 10554308 (4) Acute kidney injury Current Visit: Yes Status: Acute Code(s): N17.9 - ACUTE KIDNEY FAILURE, UNSPECIFIED SNOMED Code(s): 30524293 Comment: In the setting of sepsis, dehydration. (5) Metabolic acidosis Current Visit: Yes Status: Acute Code(s): E87.2 - ACIDOSIS SNOMED Code(s) : 01847163 Comment: due to kidney injury. (6) Respiratory failure Current Visit: Yes Status: Acute Code(s): J96.90 - RESPIRATORY FAILURE, UNSP , UNSP W HYPOXIA OR HYPERCAPNIA SNOMED Code(s): 692231776 Comment: On max O2. On low dose morphine to decrease respiratory drive. Status and Disposition: Inpatient. DNR. Only comfort care Attending: Alessandro Ellington Attestation Documenting Resident: Melissa Hobson Supervising Physician: Alessandro Ellington Attending/Supervising Physician Comment: Agree with note as outlined by Dr. Hobson today. Comfort care measures only with increasing need for morphine. Prognosis poor Attestation: This service has been performed in part by a resident under the direction of a teaching physician.I, Alessandro Ellington, performed the service, or was physically present during the critical, or cox portions of the service, furnished by the resident. I participated in the management of the patient.
--- NOTE | 2018-10-04 21:36 | DS ---
DISCHARGE SUMMARY: DATE OF ADMISSION: 09/30/18 DATE OF : 10/04/18 PRIMARY CARE PROVIDER: None. DISPOSITION ON DISCHARGE: . CONDITION: . HISTORY OF PRESENT ILLNESS AND HOSPITAL COURSE: An 82-year-old female with past medical history as outlined in the history of present illness on the date of admission presented to the hospital with what appeared to be severe sepsis, potentially from the urinary source, associated with multisystem organ failure including cardiovascular collapse, severe acute kidney failure, and pulmonary compromise requiring OxyMask. There was a trial of IV fluids for her hypotension on presentation; however, her sodium continued to worsen. Her mental status remained depressed and she ultimately developed supraventricular tachycardia. After developing the supraventricular tachycardia, failure to improve with fluids and antibiotics, the patient's family including healthcare proxy decided to transition to comfort care measures only. 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 She comfortably. Her family was notified and received all information. [id number]/[facility] #: [id number] MTDD
== END 2018-10-04 06:29 | disposition expired | DRG 871 ==
LOC: ED 23:43 → MEDTELE 09-30 03:35
PROVIDERS: ADMIT Internal Medicine; ATTEND Internal Medicine
DX: A41.9 Sepsis, unspecified organism (principal); J96.00 Acute respiratory failure, unspecified whether with hypoxia or hypercapnia; R65.21 Severe sepsis with septic shock; N17.9 Acute kidney failure, unspecified; E87.0 Hyperosmolality and hypernatremia; N39.0 Urinary tract infection, site not specified; E87.2 Acidosis; I47.1 Supraventricular tachycardia; E86.0 Dehydration; I95.9 Hypotension, unspecified; Z66 Do not resuscitate; B96.4 Proteus (mirabilis) (morganii) as the cause of diseases classified elsewhere; R40.2423 Glasgow coma scale score 9-12, at hospital admission; R74.8 Abnormal levels of other serum enzymes; Z51.5 Encounter for palliative care; D50.9 Iron deficiency anemia, unspecified; E11.22 Type 2 diabetes mellitus with diabetic chronic kidney disease; I12.9 Hypertensive chronic kidney disease with stage 1 through stage 4 chronic kidney disease, or unspecified chronic kidney disease; N18.9 Chronic kidney disease, unspecified; K21.9 Gastro-esophageal reflux disease without esophagitis; F01.50 Vascular dementia, unspecified severity, without behavioral disturbance, psychotic disturbance, mood disturbance, and anxiety; C67.9 Malignant neoplasm of bladder, unspecified; E64.2 Sequelae of vitamin C deficiency; Z79.4 Long term (current) use of insulin; Z79.899 Other long term (current) drug therapy; Z88.1 Allergy status to other antibiotic agents; Z88.5 Allergy status to narcotic agent; Z88.0 Allergy status to penicillin; Z88.2 Allergy status to sulfonamides; Z88.7 Allergy status to serum and vaccine; Z88.8 Allergy status to other drugs, medicaments and biological substances
CPT/HCPCS: 36415; 71045; 80048; 80053; 80076; 81003; 81015; 82010; 82803; 83605; 83735; 83880; 84100; 84484; 85025; 85060; 85610; 85730; 87040; 87077; 87086; 87184; 87186; 87641; 93005; 99285; J0153; J0696; J1160; J2270; J3370